=== PATIENT | female | born 1975 | race American Indian/Alaskan Native ===

== ENCOUNTER 2017-01-08 07:45 | Outpatient (CLI) | payer BC ==
--- NOTE | 2017-01-08 10:43 | PET Report ---
PET/CT:01/08/17 07:45:00 CLINICAL: Chondrosarcoma. RADIOPHARMACEUTICAL: 14.8mCi F18-FDG. COMPARISON: None. TECHNIQUE- Following intravenous injection of F-18 FDG and an approximately 60 minute uptake period, CT and PET images from the mid skull to the upper thighs were acquired with the patient in the fasted state. No contrast was administered. The CT protocol used for this PET CT study is designed for attenuation correction and anatomic localization of PET abnormalities. This sales service coordinator CT is not desired to produce and cannot replace, [id number] diagnostic CT scans with specific imaging protocols for different body parts and indications. Plasma glucose at the time of this test: 113g/dl. The standardized uptake values (SUV) are normalized to patient body weight and indicate the highest activity concentration (SUV max) in a given disease site. FINDINGS: Brain--Physiologic FDG uptake in the visualized regions of the brain. Neck--Physiologic FDG uptake . Chest--Physiologic FDG uptake in mediastinal blood pool and myocardium. Lungs--No abnormal uptake. No pulmonary nodule or mass. Pleura/pericardium--No abnormal uptake. Thoracic nodes--No abnormal uptake. Hepatobiliary--No abnormal uptake. Liver background SUV mean, as a reference for comparing FDG studies, is 3.8 . No liver mass. Spleen--No abnormal uptake. Pancreas--No abnormal uptake. Adrenal Glands--No abnormal uptake. Kidneys/Ureters/Bladder--No abnormal uptake. Abdominopelvic Nodes--No abnormal uptake. Bowel/Peritoneum/Mesentery--No abnormal uptake. Pelvic organs--No abnormal uptake. Bones/Soft Tissues--No abnormal uptake. No suspicious bone lesion. Please note that the upper and lower extremities were only partially covered on the scan. Scans end at the proximal humeri and at the proximal femora and did not include the distal upper and lower extremities. IMPRESSION- Negative study.
== END 2017-01-08 07:46 | disposition home or self-care (01) ==
LOC: PET 07:45
DX: C40.00 Malignant neoplasm of scapula and long bones of unspecified upper limb (principal)
CPT/HCPCS: 78815; 82962; A9552